=== PATIENT | female | born 1940 | race Caucasian/White ===

== ENCOUNTER 2019-06-26 12:52 | Emergency (ER) | payer MEDICARE, MEDICAID ==
[~2019-06-26] VITALS: Ht 152.4 cm; Wt 74.0 kg
[2019-06-26] MEDS ORDERED: HYDROCODONE/ACETAMINOPHEN 5/325MG TABLET PO ONE (15:15)
[2019-06-26] MEDS ORDERED: MORPHINE SULFATE 4 MG/ML CPJ (NOT FOR IM USE) IV ONE (17:45)
[2019-06-26 21:20] VITALS: BP 124/50
[2019-06-26] MEDS ORDERED: TETANUS, DIPHTHERIA, PERTUSSIS VAC/PF 0.5ML (>7YR OLD) IM ONE (21:30)
== END 2019-06-26 21:36 | disposition home or self-care (01) ==
LOC: ER 12:52
DX: S52.502A Unspecified fracture of the lower end of left radius, initial encounter for closed fracture (principal); S52.222A Displaced transverse fracture of shaft of left ulna, initial encounter for closed fracture; S01.111A Laceration without foreign body of right eyelid and periocular area, initial encounter; R51 Headache; F20.9 Schizophrenia, unspecified; E03.9 Hypothyroidism, unspecified; I49.9 Cardiac arrhythmia, unspecified; Z88.0 Allergy status to penicillin; W05.0XXA Fall from non-moving wheelchair, initial encounter; Y93.89 Activity, other specified; Y92.89 Other specified places as the place of occurrence of the external cause; Y99.8 Other external cause status
CPT/HCPCS: 29125; 70450; 71045; 73030; 73100; 90471; 90715; 93005; 96374; 99284; J2270

== ENCOUNTER 2022-03-04 00:18 | Inpatient (IN) | payer MEDICARE, MEDICAID ==
[~2022-03-04] VITALS: Ht 160 cm; Wt 67.1 kg
[2022-03-04] MEDS ORDERED: SODIUM CHLORIDE 0.9% 1,000 ML IV ONE (01:00)
[2022-03-04] MEDS ORDERED: PANTOPRAZOLE SODIUM 40 MG/VIAL IV ONE (01:00)
[2022-03-04 02:23] LABS: HEMATOCRIT. 39.7 % (36.0-48.0); HEMOGLOBIN. 13.2 g/dL (12.0-16.0); MEAN CORPUSCULAR HEMOGLOBIN 29.7 pg (28.0-32.0); MEAN CORPUSCULAR VOLUME 89.5 fL (81.0-99.0); MEAN PLATELET VOLUME 8.4 fl (7.4-10.4); PLATELET 281 x1000/uL (130-400); RED BLOOD CELL COUNT 4.43 mill/uL (4.2-5.4); RED CELL DISTRIBUTION WIDTH 15.4 % (11.6-14.6)
[2022-03-04 02:24] LABS: CHLORIDE 106 mEq/L (98-107)
[2022-03-04 04:41] LABS: CLARITY URINE CLEAR (CLEAR); COLOR URINE YELLOW (YELLOW); KETONES URINE NEGATIVE (NEGATIVE); LEUKOCYTE ESTERASE URINE 1+ (NEGATIVE); NITRITE URINE NEGATIVE (NEGATIVE); OCCULT BLOOD URINE NEGATIVE (NEGATIVE); PROTEIN URINE NEGATIVE (NEGATIVE); SPECIFIC GRAVITY URINE 1.026 (1.005-1.030)
[2022-03-04] MEDS ORDERED: CEFTRIAXONE 1 G PREMIX 50 ML IV NR (05:30)
[2022-03-04 05:56] LABS: PLATELET ESTIMATE NORMAL
[2022-03-04] MEDS ORDERED: ONDANSETRON HCL 4MG/2ML INJ IV PRN (06:45)
[2022-03-04] MEDS ORDERED: TRAMADOL 50MG TABLET PO PRN (06:45)
[2022-03-04] MEDS ORDERED: DOCUSATE SODIUM 100MG CAPSULE PO PRN (06:45)
[2022-03-04] MEDS ORDERED: GUAIFENESIN 200MG/10ML SUGAR FREE UDC PO PRN (06:45)
[2022-03-04] MEDS ORDERED: MAGNESIUM/ALUMINUM HYDROXIDE/SIMETHICONE 30ML UDC PO PRN (06:45)
[2022-03-04] MEDS ORDERED: ACETAMINOPHEN 325MG TABLET PO PRN (06:45)
[2022-03-04] MEDS: DEXT 5%/0.45% NACL 1000ML 1,000 ML IV SCH (07:10)
[2022-03-04] MEDS: ENOXAPARIN 40MG/0.4ML SYR SUBCUT SCH (08:34)
[2022-03-04] MEDS: AMLODIPINE 10MG TABLET PO SCH ×2 (08:34→08:38)
[2022-03-04 09:57] VITALS: BP 116/69
[2022-03-04] MEDS ORDERED: LEVE10006 GT (10:20)
[2022-03-04] MEDS ORDERED: GABA-532 GT (10:20)
[2022-03-04] MEDS ORDERED: LACO200T2 GT (10:20)
[2022-03-04] MEDS ORDERED: NUTR1PAC14 GT (10:20)
[2022-03-04] MEDS ORDERED: FAMO20TA8 PO (10:20)
[2022-03-04] MEDS ORDERED: LEVO100T GT (10:20)
[2022-03-04] MEDS ORDERED: SENN-257 GT (10:22)
[2022-03-04] MEDS ORDERED: CARB-298 GT (10:22)
[2022-03-04] MEDS ORDERED: LEVOFLOXACIN 500MG PREMIX 100 ML IV SCH (11:00)
[2022-03-04 12:00] VITALS: BP 110/70
[2022-03-04] MEDS ORDERED: NALOXONE HCL 0.4MG/ML VIAL IV PRN (13:30)
[2022-03-04 16:02] VITALS: BP 130/57
[2022-03-04 20:00] VITALS: BP 126/72
[2022-03-05] VITALS: BP 121/69
[2022-03-05 04:00] VITALS: BP 130/70
[2022-03-05 08:00] VITALS: BP 135/65
[2022-03-05 08:14] LABS: BASOPHILS % 1.1 % (0.0-2.0); EOSINOPHILS % 1.8 % (0.0-5.0); HEMATOCRIT. 35.9 % (36.0-48.0); HEMOGLOBIN. 12.1 g/dL (12.0-16.0); LYMPHOCYTES % 12.4 % (20.0-50.0); MEAN CORPUSCULAR HEMOGLOBIN 30.4 pg (28.0-32.0); MEAN CORPUSCULAR VOLUME 89.8 fL (81.0-99.0); MEAN PLATELET VOLUME 9.3 fl (7.4-10.4); NEUTROPHILS % 76.7 % (40.0-76.0); PLATELET 252 x1000/uL (130-400); RED BLOOD CELL COUNT 3.99 mill/uL (4.2-5.4); RED CELL DISTRIBUTION WIDTH 15.4 % (11.6-14.6)
[2022-03-05 08:18] LABS: CHLORIDE 108 mEq/L (98-107)
[2022-03-05] MEDS: ENOXAPARIN 40MG/0.4ML SYR SUBCUT SCH (08:27)
[2022-03-05] MEDS: AMLODIPINE 10MG TABLET PO SCH (08:27)
[2022-03-05] MEDS: DEXT 5%/0.45% NACL 1000ML 1,000 ML IV SCH ×2 (08:27→20:25)
[2022-03-05] MEDS: LEVOFLOXACIN 250MG PREMIX 50 ML IV SCH (10:15)
[2022-03-05] MEDS: GABAPENTIN 300MG CAPSULE PO SCH ×2 (11:50→17:04)
[2022-03-05] MEDS: FAMOTIDINE 20MG TABLET PO SCH (11:50)
[2022-03-05] MEDS: LEVOTHYROXINE SODIUM 100MCG TABLET PO SCH (11:50)
[2022-03-05] MEDS: CARBIDOPA/LEVODOPA 10/100MG TABLET PO SCH ×2 (11:51→17:05)
[2022-03-05 12:00] VITALS: BP 141/62
[2022-03-05 16:02] VITALS: BP 116/64
[2022-03-05 20:00] VITALS: BP 112/57
[2022-03-05] MEDS: SENNOSIDES 8.6MG TABLET PO SCH (20:26)
[2022-03-05] MEDS: LEVETIRACETAM 500MG/5ML CUP PO SCH (20:26)
[2022-03-06] VITALS: BP 123/64
[2022-03-06] MEDS: CARBIDOPA/LEVODOPA 10/100MG TABLET PO SCH ×4 (00:12→17:32)
[2022-03-06 04:00] VITALS: BP 128/76
[2022-03-06] MEDS: LEVOTHYROXINE SODIUM 100MCG TABLET PO SCH (05:39)
[2022-03-06 08:00] VITALS: BP 129/48
[2022-03-06] MEDS: ENOXAPARIN 40MG/0.4ML SYR SUBCUT SCH (09:07)
[2022-03-06] MEDS: LEVETIRACETAM 500MG/5ML CUP PO SCH ×2 (09:08→20:29)
[2022-03-06] MEDS: GABAPENTIN 300MG CAPSULE PO SCH ×2 (09:08→16:37)
[2022-03-06] MEDS: FAMOTIDINE 20MG TABLET PO SCH (09:08)
[2022-03-06] MEDS: AMLODIPINE 10MG TABLET PO SCH (09:08)
[2022-03-06] MEDS: LEVOFLOXACIN 250MG PREMIX 50 ML IV SCH (11:19)
[2022-03-06] MEDS: DEXT 5%/0.45% NACL 1000ML 1,000 ML IV SCH (11:19)
[2022-03-06 12:00] VITALS: BP 125/72
[2022-03-06 16:00] VITALS: BP 125/63
[2022-03-06 16:41] LABS: BASOPHILS % 1.5 % (0.0-2.0); EOSINOPHILS % 2.6 % (0.0-5.0); HEMATOCRIT. 37.5 % (36.0-48.0); HEMOGLOBIN. 12.7 g/dL (12.0-16.0); LYMPHOCYTES % 12.9 % (20.0-50.0); MEAN CORPUSCULAR HEMOGLOBIN 30.7 pg (28.0-32.0); MEAN CORPUSCULAR VOLUME 91.2 fL (81.0-99.0); MEAN PLATELET VOLUME 8.6 fl (7.4-10.4); MONOCYTES % 9.4 % (2.0-8.0); NEUTROPHILS % 73.6 % (40.0-76.0); PLATELET 270 x1000/uL (130-400); RED BLOOD CELL COUNT 4.12 mill/uL (4.2-5.4); RED CELL DISTRIBUTION WIDTH 15.4 % (11.6-14.6)
[2022-03-06 16:52] LABS: CHLORIDE 107 mEq/L (98-107)
[2022-03-06 20:00] VITALS: BP 133/93
[2022-03-06] MEDS: SENNOSIDES 8.6MG TABLET PO SCH (20:29)
[2022-03-07] VITALS: BP 121/72
[2022-03-07] MEDS: CARBIDOPA/LEVODOPA 10/100MG TABLET PO SCH ×4 (00:26→18:45)
[2022-03-07 04:00] VITALS: BP 119/78
[2022-03-07] MEDS: LEVOTHYROXINE SODIUM 100MCG TABLET PO SCH (05:01)
[2022-03-07] MEDS: DEXT 5%/0.45% NACL 1000ML 1,000 ML IV SCH ×2 (05:02→15:15)
[2022-03-07 08:00] VITALS: BP 137/72
[2022-03-07] MEDS: GABAPENTIN 300MG CAPSULE PO SCH ×2 (09:31→18:45)
[2022-03-07] MEDS: FAMOTIDINE 20MG TABLET PO SCH (09:31)
[2022-03-07] MEDS: ENOXAPARIN 40MG/0.4ML SYR SUBCUT SCH (09:32)
[2022-03-07] MEDS: AMLODIPINE 10MG TABLET PO SCH (09:33)
[2022-03-07] MEDS: LEVETIRACETAM 500MG/5ML CUP PO SCH (09:39)
[2022-03-07] MEDS: LEVOFLOXACIN 250MG PREMIX 50 ML IV SCH (11:18)
[2022-03-07 12:00] VITALS: BP 138/80
[2022-03-07 16:00] VITALS: BP 112/52
[2022-03-07 19:20] VITALS: BP 118/77
== END 2022-03-07 20:50 | DRG 871 ==
LOC: ER 00:18 → 8WST 05:24 → ENRESERV 08:36
PROVIDERS: ADMIT Hospitalist; ATTEND Hospitalist
DX: A41.9 Sepsis, unspecified organism (principal); G93.41 Metabolic encephalopathy; J18.9 Pneumonia, unspecified organism; E03.9 Hypothyroidism, unspecified; I10 Essential (primary) hypertension; L89.159 Pressure ulcer of sacral region, unspecified stage; G20 Parkinson's disease; G40.909 Epilepsy, unspecified, not intractable, without status epilepticus; R62.50 Unspecified lack of expected normal physiological development in childhood; R13.10 Dysphagia, unspecified; R79.89 Other specified abnormal findings of blood chemistry; F20.9 Schizophrenia, unspecified; Z86.718 Personal history of other venous thrombosis and embolism; Z93.1 Gastrostomy status; E86.0 Dehydration
CPT/HCPCS: 36415; 71045; 74176; 80053; 81003; 82140; 82962; 83880; 84443; 84484; 85025; 86850; 86900; 93970; 99285; C9113; J0696; J1650; J1956; J7030